=== PATIENT | female | born 1955 | race African-American/Black ===

== ENCOUNTER 2019-09-07 22:40 | Emergency (ER) | payer OTHER ==
[~2019-09-07] VITALS: Ht 165.1 cm; Wt 90.7 kg
[~2019-09-07 22:40] MED LIST: IBUPROFEN 600600 M1 PO; NORCO 5-325 TA1 EACH PO; ZPAK PO
[2019-09-07 23:06] LABS: ABSOLUTE NEUTROPHILS 5.5 thou/uL (1.4-8.2); BASOPHILS 0.8 % (0.0-2.0); EOSINOPHILS 0.5 % (0.0-3.0); HEMATOCRIT 32.2 % (37.0-47.0); HEMOGLOBIN 10.8 gm/dL (12.0-15.0); LYMPHOCYTES 21.2 % (24.0-44.0); MCH 31.7 pg (26.0-34.0); MCHC 33.6 g/dL (28.0-37.0); MCV 94.3 fL (80.0-100.0); MONOCYTES 7.5 % (1.0-8.0); PLATELET COUNT 420 thou/uL (150-400); RBC 3.42 mil/uL (4.20-5.00); RDW 14.4 % (10.5-14.5); WBC 7.9 thou/uL (4.0-11.0)
[2019-09-07 23:45] LABS: ANION GAP 10 mmol/L (7-16); BUN 15 mg/dL (7-18); CALCIUM 9.2 mg/dL (8.5-10.1); CHLORIDE 98 mmol/L (98-107); CO2 31 mmol/L (21-32); CREATININE 1.8 mg/dL (0.6-1.0); GLUCOSE 171 mg/dL (74-106); POTASSIUM 3.2 mmol/L (3.5-5.1); SODIUM 139 mmol/L (136-145)
[2019-09-07 23:53] LABS: MAGNESIUM 2.3 mg/dL (1.8-2.4); TROPONIN-I <0.06 ng/mL (<0.06)
[2019-09-08 04:57] VITALS: BP 121/79
--- NOTE | 2019-09-09 09:54 | EKG ---
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 : 1955 Requested By: Syed Palma Order Number: [id number] MD: Alec Duncan Measurements Intervals Prospect Rate: 66 P: -90 LA: 310 QRS: 2 QRSD: 97 T: 133 QT: 416 QTc: 436 Interpretive Statements Sinus or ectopic atrial rhythm Prolonged LA interval Anteroseptal infarct, old Nonspecific T abnormalities, lateral leads No previous ECG available for comparison Electronically Signed On 09-09-2019 9:53:28 [employer]EN BUILDING ARCHITECT by Alec Duncan [email or web address] <ELECTRONICALLY SIGNED> By: Alec Duncan MD, [facility] 09/09/19 [id number] lAec Duncan MD, FACC /EPI
== END 2019-09-08 04:57 | disposition home or self-care (01) ==
LOC: ER 22:40
PROVIDERS: Emergency Medicine
DX: M79.674 Pain in right toe(s) (principal); M79.89 Other specified soft tissue disorders; I10 Essential (primary) hypertension; E11.9 Type 2 diabetes mellitus without complications; M19.90 Unspecified osteoarthritis, unspecified site; M48.00 Spinal stenosis, site unspecified; F17.210 Nicotine dependence, cigarettes, uncomplicated